=== PATIENT | female | born 1940 | race Caucasian/White ===

== ENCOUNTER 2019-01-24 08:47 | Inpatient (IN) ==
[2019-01-24] MEDS ORDERED: Mag Hydrox/Al Hydrox/Simeth 30 ML UDC PO PRN (17:36)
[2019-01-24] MEDS ORDERED: Acetaminophen 325 MG TABLET PO PRN (17:36)
[2019-01-24] MEDS ORDERED: Ondansetron ODT 4 MG TAB.RAPDIS SL PRN (17:38)
[2019-01-24] MEDS: *HR* OxyCODONE Immed Rel 5 MG TABLET PO PRN (18:32)
[2019-01-24] MEDS: Famotidine 20 MG TABLET PO SCH (20:27)
[2019-01-25 05:27] LABS: Basophils % 0.5 %; Eosinophils # 0.2 K/mcL (0.0-0.6); Eosinophils % 2.6 %; Hematocrit 32.2 % (35.3-44.9); Hemoglobin 10.8 g/dL (11.5-15.4); Immature Granulocytes % 0.4 % (0-4); Lymphocytes # 1.7 K/mcL (0.6-4.6); Lymphocytes % 21.9 %; Mean Corpuscular HGB Conc 33.5 g/dL (31.6-35.5); Mean Corpuscular Hemoglobin 30.1 pg (28.0-33.3); Mean Corpuscular Volume 89.7 fL (83.0-100.0); Monocytes # 0.8 K/mcL (0.0-1.3); Monocytes % 10.3 %; Platelet Count 249 K/mcL (140-400); Red Blood Count 3.59 M/mcL (3.82-4.97); Red Cell Distribution Width 12.6 % (11.5-14.5); Segmented Neutrophils % 64.3 %; White Blood Count 7.8 K/mcL (4.3-11.1)
[2019-01-25] MEDS: *HR* Enoxaparin 40 MG/0.4 ML SYRINGE SQ SCH (05:39)
[2019-01-25] MEDS: *HR* OxyCODONE Immed Rel 5 MG TABLET PO PRN ×3 (05:40→21:42)
[2019-01-25 05:43] LABS: Alanine Aminotransferase 8 Units/L (7-52); Albumin 3.3 g/dL (3.5-5.7); Albumin/Globulin Ratio 1.1 (1.1-2.2); Alkaline Phosphatase 60 Units/L (34-104); Aspartate Amino Transferase 15 Units/L (13-39); BUN/Creatinine Ratio 16 (6-26); Blood Urea Nitrogen 10 mg/dL (8-23); Calcium 8.7 mg/dL (8.6-10.3); Carbon Dioxide 27 mEq/L (23-29); Chloride 102 mEq/L (98-107); Glucose 96 mg/dL (70-105); Magnesium 1.9 mg/dL (1.6-2.6); Osmolality,Calculated 283 (280-300); Sodium 137 mEq/L (136-145); Total Protein 6.3 g/dL (6.4-8.9); eGFR For African Americans > 60 (> 60); eGFR For Non-African Americans > 60 (> 60)
[2019-01-25] MEDS: Famotidine 20 MG TABLET PO SCH ×2 (09:09→20:06)
[2019-01-25] MEDS: Metoprolol XL (24 HR) Succ 50 MG TAB.ER.24H PO SCH (09:09)
--- NOTE | 2019-01-25 09:20 | Internal Med History&Physical ---
Date of Encounter: 01/25/19 Time of Encounter: 09:17 Assessment and Plan (1) Status post total replacement of right shoulder Current visit: Yes Status: Acute PT and OT to eval and treat. Will follow progress. Continue current medication for pain control. Follow up with Dr. Zhu as scheduled. (2) HTN (hypertension) Current visit: Yes Status: Chronic Controlled with current medication. Monitor blood pressure. Qualifiers: Hypertension type: unspecified Qualified Code(s): I10 - Essential (primary) hypertension (3) HLD (hyperlipidemia) Current visit: Yes Status: Chronic Continue current medication. Qualifiers: Hyperlipidemia type: unspecified Qualified Code(s): E78.5 - Hyperlipidemia, unspecified (4) Obesity Current visit: Yes Status: Chronic Qualifiers: Obesity type: unspecified obesity type Obesity classification: unspecified obesity classification Serious obesity comorbidity presence: unspecified whether serious comorbidity present Qualified Code(s): E66.9 - Obesity, unspecified Internal Medicine - H&P: HPI Admitted From: Hospital to Hospital Transfer Plans for Post Hospital Care: Home History of present illness: Ms. Farr is a 78 year old female admitted to rehab unit status post right total shoulder replacement. Patient had surgery with Dr. Zhu on . Past medical history includes right rotator cuff arthroplasty, hypertension, osteoarthritis, obesity, hyperlipidemia. Pain control with oxycodone. PT and OT to eval and treat. Lives at home alone that has a daughter and daughter-in- law that is able to help assist with care when she returns home. Denies fever, chills, nausea vomiting or diarrhea. States last bowel movement was prior to surgery. Colace and Miralax started. Past Med Surg Social Fam HX - Past Medical History Medical history: arthritis, GERD, hyperlipidemia, hypertension Additional medical history: EDEMA Psychiatric history: no psych history - Past Surgical History Surgical History: appendectomy, cataract, hysterectomy, knee replacement - Social History Smoking Status: Never smoker Smokeless Tobacco Status: No Alcohol use: none Drug use: none - Family History Father Living Status: Hx Family Cardiac Disorders: Yes ([place]) Internal Medicine - H&P: Meds Aspirin [Adult Aspirin Regimen] 81 mg PO DAILY 12/08/18 [History] Ergocalciferol (VITAMIN D2) [Vitamin D2] 50,000 unit PO FR 12/08/18 [History] Metoprolol Succinate [Toprol Xl] 100 mg PO QAM 12/08/18 [History] Simvastatin [Zocor] 40 mg PO QPM 12/08/18 [History] Tramadol HCl [Ultram] 50 mg PO TID PRN 12/08/18 [History] raNITIdine HCl [Zantac] 150 mg PO BID 12/08/18 [History] Docusate Sodium [Colace] 100 mg PO BID 5 Days #10 capsule 01/21/19 [Rx] OxyCODONE Immed Rel [Roxicodone 5 MG] 5 mg PO Q6HR PRN 5 Days #20 tablet 01/21/19 [Rx] Allergy/AdvReac Type Severity Reaction Status Date / Time No Known Allergies Allergy Verified 01/21/19 08:27 All Systems PM: A 10-system review of systems was performed and is negative for pertinent find ings except as documented above in the HPI. - Constitutional Constitutional: no chills, no fever(s), no night sweats - EENT Eyes: no change in vision, no discharge, no pain, no photophobia Ears: no ear discharge, no ear pain, no tinnitus Nose, mouth and throat: no dysphagia, no nasal discharge, no neck pain, no sore throat - Cardiovascular Cardiovascular ROS IM: no chest pain, no diaphoresis, no dyspnea, no lightheadedness, no palpitations, no syncope - Respiratory Respiratory: no cough, no dyspnea, no wheezing, no excessive phlegm production - Gastrointestinal Gastrointestinal: no abdominal pain, no diarrhea, no hematemesis, no hematochezia, no melena, no nausea, no vomiting - Genitourinary Genitourinary: no change in urinary stream, no dysuria, no flank pain, no hematuria - Musculoskeletal Musculoskeletal ROS IM: no numbness, no tingling - Integumentary Integumentary IM: no rash, no unusual bruising - Neurological Neurological ROS: no confusion, no convulsions, no focal weakness, no numbness, no tingling, no tremor(s) - Hematologic/Lymphatic Hematologic/Lymphatic: no easy bruising - Constitutional Vitals: Temp Pulse Resp BP Pulse Ox 98.7 F 62 15 144/78 94 01/25/19 07:00 01/25/19 07:00 01/25/19 07:00 01/25/19 07:00 01/25/19 07:00 General appearance: Present: cooperative, A&O X 3, pleasant, no acute distress, obese, answers questions appropriately - Head Head exam: Present: atraumatic, normocephalic - Eye Eye exam: Present: PERRL, conjuntiva pink, sclera anicteric Pupils: Present: PERRL - Neck Neck exam general surgery: Present: supple, trachea midline. Absent: lymphadenopathy - Respiratory Respiratory exam: Present: CTAB. Absent: accessory muscle use, rales, rhonchi, wheezes - Cardiovascular Cardiovascular exam: Present: RRR, +S1, +S2. Absent: diastolic murmur, gallop, rubs, systolic murmur - GI/Abdominal GI/Abdominal exam: Present: normal bowel sounds, soft, no peritoneal signs. Absent: distended, tenderness - Extremities Exam Extremities exam: Present: warm, radial pulses palpable and symmetrical. Absent: calf tenderness, cyanotic, pedal edema - Incison Comments: Right shoulder dressing dry and intact. no drainage or sign of infection. - Neurological Exam Neurological exam: Present: CN II-XII intact, oriented X3, no focal deficits. Absent: pronater drift, facial droop, speech deficit - Skin Skin exam: Present: dry, intact Internal Med - H&P Results - Labs CBC & Chem 7: 01/25/19 04:45 01/25/19 04:45 Labs: Short CBC 01/25/19 Range/Units 04:45 WBC 7.8 (4.3-11.1) K/mcL Hgb 10.8 L (11.5-15.4) g/dL Hct 32.2 L (35.3-44.9) % Plt Count 249 (140-400) K/mcL Neutrophils # 5.0 (1.6-8.9) K/mcL BMP 01/25/19 04:45 Sodium 137 Potassium 4.0 Chloride 102 Carbon Dioxide 27 BUN 10 Creatinine 0.63 Glucose 96 Calcium 8.7 Liver Function 01/25/19 Range/Units 04:45 Total Bilirubin 1.0 (0.3-1.0) mg/dL AST 15 (13-39) Units/L ALT 8 (7-52) Units/L Alkaline Phosphatase 60 (34-104) Units/L Albumin 3.3 L (3.5-5.7) g/dL
[2019-01-26] MEDS: *HR* Enoxaparin 40 MG/0.4 ML SYRINGE SQ SCH (05:54)
[2019-01-26] MEDS: *HR* OxyCODONE Immed Rel 5 MG TABLET PO PRN ×3 (05:55→20:55)
[2019-01-26] MEDS: Metoprolol XL (24 HR) Succ 50 MG TAB.ER.24H PO SCH (08:41)
[2019-01-26] MEDS: Famotidine 20 MG TABLET PO SCH ×2 (08:41→20:54)
--- NOTE | 2019-01-26 09:36 | Internal Med Progress Note ---
Date of Encounter: 01/26/19 Time of Encounter: 09:34 - Subjective Interval history: Cross coverage . S?P right shoulder surgery Pain si well controlled - Constitutional Vitals: Temp Pulse Resp BP Pulse Ox 98.5 F 54 16 123/73 96 01/26/19 07:30 01/26/19 07:30 01/26/19 07:30 01/26/19 07:30 01/26/19 07:30 General appearance: Present: cooperative, A&O X 3, pleasant, no acute distress, obese, answers questions appropriately - Head Head exam: Present: atraumatic - Eye Eye exam: Present: EOMI, PERRL. Absent: conjuntiva pink, sclera anicteric Pupils: Present: PERRL - Neck Neck exam general surgery: Absent: tenderness, nuchal rigidity, supple, trachea midline - Respiratory Respiratory exam: Present: CTAB. Absent: chest wall tenderness, respiratory distress, rhonchi, stridor, wheezes, tachypnea - Cardiovascular Cardiovascular exam: Present: RRR, +S1, +S2. Absent: systolic murmur, tachycardia - GI/Abdominal GI/Abdominal exam: Present: normal bowel sounds, soft. Absent: distended, guarding, hepatomegaly, rigid, no peritoneal signs - Extremities Exam Extremities exam: Absent: pedal edema, tenderness Additional comments: s/p Surgery left shoulder in a sling No swelling hand or fingers noted warm to touch no change in coloration - Incison Incision: Present: clean and dry, intact. Absent: red, swollen, inflamed, erythema, purulent, indurated, serous, serosanguinous - Neurological Exam Neurological exam: Present: CN II-XII intact, oriented X3, no focal deficits, strengths equal and symetr throughout. Absent: pronater drift, facial droop Additional comments: except for the surgery side right upper arm which is in a sling Internal Medicine: Result - Labs CBC & Chem 7: 01/25/19 04:45 01/25/19 04:45 Consult Discharge Plan - Plan Referrals: Anoop-Jerrica Moffett DO [Primary Care Provider] -
[2019-01-27] MEDS: *HR* Enoxaparin 40 MG/0.4 ML SYRINGE SQ SCH (05:26)
[2019-01-27] MEDS: *HR* OxyCODONE Immed Rel 5 MG TABLET PO PRN (07:07)
[2019-01-27] MEDS: Metoprolol XL (24 HR) Succ 50 MG TAB.ER.24H PO SCH (08:38)
[2019-01-27] MEDS: Famotidine 20 MG TABLET PO SCH ×2 (08:38→19:37)
--- NOTE | 2019-01-27 08:58 | Internal Med Progress Note ---
Date of Encounter: 01/27/19 Time of Encounter: 08:56 - Assessment and plan (1) Status post total replacement of right shoulder Current Visit: Yes Status: Acute Assessment and plan: stable and getting rehab . Once evaluated discharge based on PT recommendations and her ability to take care of herself at home client services analyst to see her. Wound is healing well (2) HTN (hypertension) Current Visit: Yes Status: Chronic Assessment and plan: stable at the present time no side effects to meds. plan to continue her meds as before and adjust as needed Qualifiers: Hypertension type: unspecified Qualified Code(s): I10 - Essential (primary) hypertension - Subjective Interval history: Cross coverage . S/P right shoulder surgery Pain is well controlled incrusted to know when she would be able to go back home - Constitutional Vitals: Temp Pulse Resp BP Pulse Ox 98.6 F 66 18 144/76 98 01/27/19 07:00 01/27/19 07:00 01/27/19 07:00 01/27/19 07:00 01/27/19 07:00 General appearance: Present: cooperative, A&O X 3, pleasant, no acute distress, obese, answers questions appropriately - Head Head exam: Present: atraumatic - Eye Eye exam: Present: PERRL, scleral icterus. Absent: conjuntiva pink, sclera anicteric Pupils: Present: PERRL - Neck Neck exam general surgery: Present: full ROM, supple. Absent: tenderness, nuchal rigidity, thyromegaly - Respiratory Respiratory exam: Present: CTAB. Absent: chest wall tenderness, respiratory distress, rhonchi, stridor, wheezes, tachypnea - Cardiovascular Cardiovascular exam: Present: RRR, +S1, +S2. Absent: systolic murmur, tachycardia - GI/Abdominal GI/Abdominal exam: Present: normal bowel sounds, soft. Absent: rebound, rigid, tenderness - Extremities Exam Extremities exam: Absent: pedal edema, tenderness - Expanded Upper Extremities Exam Upper Arm exam: Absent: swelling, tenderness Forearm wrist exam: Present: full ROM, normal inspection. Absent: pain with axial thumb loading, swelling Hand wrist exam: Present: normal inspection. Absent: swelling, tenderness Neuro motor exam: Present: thumb opposition intact - Incison Incision: Present: clean and dry, intact. Absent: draining, red, inflamed, erythema - Neurological Exam Neurological exam: Present: alert, CN II-XII intact, no focal deficits, strengths equal and symetr throughout. Absent: facial droop, speech deficit Additional comments: left shoulder surgery and arm in sling otherwise normal exam Internal Medicine: Result - Labs CBC & Chem 7: 01/25/19 04:45 01/25/19 04:45 Consult Discharge Plan - Plan Referrals: Anoop-Jerrica Moffett DO [Primary Care Provider] -
[2019-01-27] MEDS: traMADol 50 MG TABLET PO PRN (18:46)
[2019-01-28] MEDS: *HR* OxyCODONE Immed Rel 5 MG TABLET PO PRN ×2 (00:33→20:00)
[2019-01-28] MEDS: *HR* Enoxaparin 40 MG/0.4 ML SYRINGE SQ SCH (06:15)
[2019-01-28] MEDS: Metoprolol XL (24 HR) Succ 50 MG TAB.ER.24H PO SCH (08:33)
[2019-01-28] MEDS: Famotidine 20 MG TABLET PO SCH ×2 (08:33→19:59)
[2019-01-28] MEDS ORDERED: Melatonin 3 MG TABLET PO PRN (08:34)
--- NOTE | 2019-01-28 08:34 | Internal Med Progress Note ---
Date of Encounter: 01/28/19 Time of Encounter: 08:31 - Assessment and plan (1) Status post total replacement of right shoulder Current Visit: Yes Status: Acute Assessment and plan: stable and getting rehab . No new change. In a sling (2) HTN (hypertension) Current Visit: Yes Status: Chronic Assessment and plan: stable Continue to monitor stable. Qualifiers: Hypertension type: unspecified Qualified Code(s): I10 - Essential (primary) hypertension - Subjective Interval history: Cross coverage . S/P right shoulder surgery complaining of poor sleep last night and is interested in some sleeping aid. - Constitutional Vitals: Temp Pulse Resp BP Pulse Ox 98.3 F 68 16 130/63 98 01/28/19 07:00 01/28/19 07:00 01/28/19 07:00 01/28/19 07:00 01/28/19 07:00 General appearance: Present: cooperative, A&O X 3, pleasant, no acute distress, obese, answers questions appropriately - Head Head exam: Present: atraumatic - Eye Eye exam: Present: EOMI, PERRL. Absent: scleral icterus, conjuntiva pink Pupils: Present: PERRL - Neck Neck exam general surgery: Present: full ROM, supple. Absent: tenderness, nuchal rigidity - Respiratory Respiratory exam: Present: CTAB. Absent: prolonged expiratory phase, rales, respiratory distress, rhonchi, stridor, wheezes, tachypnea - Cardiovascular Cardiovascular exam: Present: RRR, +S1, +S2. Absent: systolic murmur, tachycardia - GI/Abdominal GI/Abdominal exam: Present: normal bowel sounds, soft. Absent: distended, guarding, rebound, rigid, tenderness, no peritoneal signs - Extremities Exam Extremities exam: Absent: pedal edema, tenderness - Incison Incision: Present: clean and dry, intact. Absent: draining, red, swollen, inflamed, erythema, purulent - Neurological Exam Neurological exam: Present: CN II-XII intact, oriented X3, no focal deficits, strengths equal and symetr throughout. Absent: facial droop, speech deficit Internal Medicine: Result - Labs CBC & Chem 7: 01/25/19 04:45 01/25/19 04:45 Consult Discharge Plan - Plan Referrals: Anoop-Jerrica Moffett DO [Primary Care Provider] -
[2019-01-28] MEDS: traMADol 50 MG TABLET PO PRN (10:30)
[2019-01-29] MEDS: *HR* Enoxaparin 40 MG/0.4 ML SYRINGE SQ SCH (05:38)
[2019-01-29] MEDS: Famotidine 20 MG TABLET PO SCH ×2 (07:54→19:59)
[2019-01-29] MEDS: Metoprolol XL (24 HR) Succ 50 MG TAB.ER.24H PO SCH (07:54)
[2019-01-29] MEDS: *HR* OxyCODONE Immed Rel 5 MG TABLET PO PRN ×2 (07:54→20:00)
--- NOTE | 2019-01-29 11:13 | Internal Med Progress Note ---
Date of Encounter: 01/29/19 Time of Encounter: 11:11 - Assessment and plan (1) Status post total replacement of right shoulder Current Visit: Yes Status: Acute Assessment and plan: Continue PT and OT. Will follow progress. Anticipating discharge for tomorrow. Pain controlled. Follow up with ortho as scheduled. (2) HTN (hypertension) Current Visit: Yes Status: Chronic Assessment and plan: Controlled with current medication. Monitor blood pressure. Qualifiers: Hypertension type: unspecified Qualified Code(s): I10 - Essential (primary) hypertension (3) HLD (hyperlipidemia) Current Visit: Yes Status: Chronic Assessment and plan: Continue current medication. Qualifiers: Hyperlipidemia type: unspecified Qualified Code(s): E78.5 - Hyperlipidemia, unspecified (4) Obesity Current Visit: Yes Status: Chronic Qualifiers: Obesity type: unspecified obesity type Obesity classification: unspecified obesity classification Serious obesity comorbidity presence: unspecified whether serious comorbidity present Qualified Code(s): E66.9 - Obesity, unspecified - Time Spent With Patient less than 15 minutes - Subjective Interval history: Participating well with therapy. Made modified independent in room. Scheduled to go home tomorrow. States pain is controlled with current medication. Denies fever, chills, nausea vomiting or diarrhea. And I shortness of breath or chest pain. Maintaining appetite and hydration. Last bowel movement was this morning. Anticipating discharge to home tomorrow - Constitutional Vitals: Temp Pulse Resp BP Pulse Ox 97.6 F 54 15 145/79 97 01/29/19 08:20 01/29/19 08:20 01/29/19 08:20 01/29/19 08:20 01/29/19 08:20 General appearance: Present: cooperative, A&O X 3, pleasant, no acute distress, obese, answers questions appropriately - Head Head exam: Present: atraumatic, normocephalic - Eye Eye exam: Present: PERRL, conjuntiva pink, sclera anicteric Pupils: Present: PERRL - Neck Neck exam general surgery: Present: supple, trachea midline. Absent: lymphadenopathy - Respiratory Respiratory exam: Present: CTAB. Absent: accessory muscle use, rales, rhonchi, wheezes - Cardiovascular Cardiovascular exam: Present: RRR, +S1, +S2. Absent: diastolic murmur, gallop, rubs, systolic murmur - GI/Abdominal GI/Abdominal exam: Present: normal bowel sounds, soft, no peritoneal signs. Ab sent: distended, tenderness - Extremities Exam Extremities exam: Present: warm, radial pulses palpable and symmetrical. Absent: calf tenderness, cyanotic, pedal edema Additional comments: Right arm in sling - Neurological Exam Neurological exam: Present: CN II-XII intact, oriented X3, no focal deficits. Absent: pronater drift, facial droop, speech deficit - Skin Skin exam: Present: dry, intact Internal Medicine: Result - Labs CBC & Chem 7: 01/25/19 04:45 01/25/19 04:45 Consult Discharge Plan - Plan Referrals: Able-Jerrica Moffett DO [Primary Care Provider] -
[2019-01-30] MEDS: *HR* Enoxaparin 40 MG/0.4 ML SYRINGE SQ SCH (05:21)
[2019-01-30] MEDS: Metoprolol XL (24 HR) Succ 50 MG TAB.ER.24H PO SCH (07:52)
[2019-01-30] MEDS: traMADol 50 MG TABLET PO PRN (07:52)
[2019-01-30] MEDS: Famotidine 20 MG TABLET PO SCH (07:52)
[2019-01-30 07:55] VITALS: BP 137/71
--- NOTE | 2019-01-30 10:23 | Discharge Summary ---
Date of Encounter: 01/30/19 Time of Encounter: 10:21 - Discharge Diagnosis (1) Status post total replacement of right shoulder Priority: Primary Status: Acute Comments: Patient was admitted to this facility for rehabilitation following a right shoulder replacement. Surgical wound dressing appears dry and intact. Noted large amount of healing ecchymosis surrounding surgical site. No erythema. No drainage. Recent has progressed well with physical therapy. Follow-up with orthopedic surgeon tomorrow. Patient states that her pain has been tolerable with current medications and will be discharged with a prescription. Patient has follow-up with family physician in 2 weeks. (2) HTN (hypertension) Priority: Secondary Status: Chronic Comments: No acute issues during her stay of facility. Vital signs remained stable. We will discharge on current medications and patient is to follow-up with PCP for further management Qualifiers: Hypertension type: unspecified Qualified Code(s): I10 - Essential (primary) hypertension (3) Atherosclerotic cardiovascular disease Priority: Secondary Status: Chronic Comments: No acute issues during her stay of facility. Patient denies any chest discomforts or palpitations. We will continue with current medications and follow-up with PCP after discharge for further management Hospital course: Ms. Farr is a 78 year old female, who was admitted to rehab unit status post right total shoulder replacement. Patient had surgery with Dr. Zhu on . Past medical history includes right rotator cuff arthroplasty, hypertension, osteoarthritis, obesity, hyperlipidemia. Pain has been well controled with oxycodone. Patient has been progressing well with physical therapy and will continue therapy through home health services. Lives at home alone that has a daughter and [id number] that is able to help assist with care when she returns home. Surgical wound appears healthy with dressing dry and intact. Large amount of healing ecchymosis surrounding surgical wound. Patient has a continue follow-up with her orthopedic surgeon and PCP after discharge Discharge discussed with: patient Time spent discussing smoking cessation with patient: 3 to 10 minutes - Time Spent with Patient Total time spent providing and/or coordinating discharge services: Time spent: Less than 30 minutes - Discharge Medications Prescriptions: No Action Ergocalciferol (VITAMIN D2) [Vitamin D2] 50,000 unit PO FR Metoprolol Succinate [Toprol Xl] 100 mg PO QAM raNITIdine HCl [Zantac] 150 mg PO BID Simvastatin [Zocor] 40 mg PO QPM Tramadol HCl [Ultram] 50 mg PO TID PRN PRN Reason: Pain Aspirin [Adult Aspirin Regimen] 81 mg PO DAILY Docusate Sodium [Colace] 100 mg PO BID 5 Days #10 capsule OxyCODONE Immed Rel [Roxicodone 5 MG] 5 mg PO Q6HR PRN 5 Days #20 tablet PRN Reason: Severe Pain Home Medications: Aspirin [Adult Aspirin Regimen] 81 mg PO DAILY 12/08/18 [History] Ergocalciferol (VITAMIN D2) [Vitamin D2] 50,000 unit PO FR 12/08/18 [History] Metoprolol Succinate [Toprol Xl] 100 mg PO QAM 12/08/18 [History] Simvastatin [Zocor] 40 mg PO QPM 12/08/18 [History] Tramadol HCl [Ultram] 50 mg PO TID PRN 12/08/18 [History] raNITIdine HCl [Zantac] 150 mg PO BID 12/08/18 [History] Docusate Sodium [Colace] 100 mg PO BID 5 Days #10 capsule 01/21/19 [Rx] OxyCODONE Immed Rel [Roxicodone 5 MG] 5 mg PO Q6HR PRN 5 Days #20 tablet 01/21/19 [Rx] Allergies/Adverse Reactions: Allergy/AdvReac Type Severity Reaction Status Date / Time No Known Allergies Allergy Verified 01/21/19 08:27 Date of admission: 01/24/19 17:04 Primary care physician: Jerrica Wooten DO Consults: 01/24/19 17:41 Consult to Occupational Therapy [CONS] Routine Comment: Evaluate, develop and implement POC Reason for Consult: rehabilitation Does patient have active BEDREST order?: No Is patient medically & hemodynamically stable?: Yes Patient assessed for mobility or mobilized this visit?: Yes Consult to Physical Therapy [CONS] Routine Comment: Evaluate, develop and implement POC Reason for Consult: rehabilitation Does patient have active BEDREST order?: No Is patient medically & hemodynamically stable?: Yes Patient assessed for mobility or mobilized this visit?: Yes Consult to Recreational Therapy [CONS] Routine Comment: Evaluate, develop and implement POC Consult to Freight Sales Broker [CONS] Routine Reason for SW Consult: rehabilitation Discharging clinician: Yoli Shetty - Constitutional Vitals: Temp Pulse Resp BP Pulse Ox 97.7 F 62 16 137/71 95 01/30/19 07:54 01/30/19 07:54 01/30/19 07:54 01/30/19 07:54 01/30/19 07:54 General appearance: Present: cooperative, A&O X 3, pleasant, no acute distress, obese, answers questions appropriately - Head Head exam: Present: atraumatic, normocephalic - Eye Eye exam: Present: PERRL, conjuntiva pink, sclera anicteric Pupils: Present: PERRL - Neck Neck exam general surgery: Present: supple, trachea midline. Absent: lymphadenopathy - Respiratory Respiratory exam: Present: decreased breath sounds, CTAB. Absent: accessory muscle use, rales, rhonchi, wheezes - Cardiovascular Cardiovascular exam: Present: RRR, +S1, +S2. Absent: diastolic murmur, gallop, rubs, systolic murmur - GI/Abdominal GI/Abdominal exam: Present: normal bowel sounds, soft, no peritoneal signs. Absent: distended, tenderness - Extremities Exam Extremities exam: Present: normal capillary refill, normal inspection, warm, radial pulses palpable and symmetrical. Absent: calf tenderness, cyanotic, pedal edema Additional comments: Noted slight swelling to right shoulder. Surgical dressing appears dry and intact. Large amount of healing ecchymosis to right shoulder and upper arm. Right arm sling in place - Neurological Exam Neurological exam: Present: CN II-XII intact, oriented X3, no focal deficits. Absent: pronater drift, facial droop, speech deficit - Skin Skin exam: Present: dry, intact - Patient Status Disposition: Home Health Service Condition: Good Functional capacity at discharge: independent ambulation Overall status at discharge: patient is progressing back to baseline - Discharge Instructions Follow Up With: Anoop-Jerrica Moffett DO [Primary Care Provider] - - Diet and Activity Activity: as per physical therapy, increase activity as tolerated Diet: advance to your usual diet, low fat, low cholesterol, low salt diet
[2019-01-30] MEDS: *HR* OxyCODONE Immed Rel 5 MG TABLET PO PRN (15:58)
== END 2019-01-30 17:00 | disposition home health service (06) | DRG 561 ==
LOC: INPGRE 17:04